=== PATIENT | female | born 1970 | race Caucasian/White ===

== ENCOUNTER 2017-01-01 10:43 | Emergency (ER) | payer OTHER ==
[2017-01-01 10:49] VITALS: BP 152/102; PULSE 85; RESP 16; TEMP 98.2; O2SAT 97
--- NOTE | 2017-01-01 11:10 | EDPHY ---
H & P Stated Complaint: Sent by PCP for elevated potasssium level, - 5.8 Time Seen by Provider: 01/01/17 11:10 - Personal History LMP (Females 10-55): Irregular Current Tetanus Diphtheria and Acellular Pertussis (TDAP): Yes - Medical/Surgical History Hx Asthma: No Hx Chronic Respiratory Disease: No Hx Diabetes: No Hx Cardiac Disease: No Hx Renal Disease: No Hx Cirrhosis: No Hx Alcoholism: No Hx HIV/AIDS: No Hx Splenectomy or Spleen Trauma: No Other PMH: Denies - Social History Smoking Status: Never smoked Constitutional: Initial Vital Signs Temperature (C) 36.8 C 01/01/17 10:44 Heart Rate 85 01/01/17 10:44 Respiratory Rate 16 01/01/17 10:44 Blood Pressure 152/102 H 01/01/17 10:44 O2 Sat (%) 97 01/01/17 10:44 O2 Delivery Mode Room Air Allergies/Adverse Reactions: No Known Allergies Allergy (Unverified 01/01/17 10:49) Home Medications: Medication Instructions Recorded Lisinopril 01/01/17 Medical Decision Making ED Course/Re-evaluation: CHIEF COMPLAINT: Elevated potassium on labs one week ago HISTORY OF PRESENT ILLNESS: The patient is a 46 y/o female arriving at the referral of her physician due to reported potassium of 5.9 on lab work performed one week ago. She states 60 days ago she had mildly elevated liver enzymes and a potassium of 5.3. They attributed this to thought it was due to being overweight. She was prescribed "liver-flushing" Prevalite, which she just completed and was then started on Lisinopril and Synthroid. She believes her kidney function was normal. She had repeat lab work one week ago and notes they attempted 5 times to draw blood at different sites before obtaining blood. Her physician called her this morning with the results and directed her to go to the ED immediately for elevated potassium. She denies palpitations, chest pain, dyspnea, or any new symptoms. She has had normal stress test, echo, and EKGs in the last several months. REVIEW OF SYSTEMS: A 10 point review of systems was performed and is negative with the exception of the elements mentioned in the history of present illness. PHYSICAL EXAM: HR, BP, O2 Sat, RR. Temp noted General Appearance: Alert, well hydrated, appropriate, and non-toxic appearing. Head: Atraumatic without scalp tenderness or obvious injury Eyes: Pupils equal, round, reactive to light and accommodation, EOMI, no trauma , no injection. Nose: Atraumatic, no rhinorrhea, clear. Throat: Mucus membranes moist. Neck: Supple, nontender, no lymphadenopathy. Respiratory: No retractions, no distress, no wheezes, and no accessory muscle use. Lungs are clear to auscultation bilaterally. Cardiovascular: Regular rate and rhythm, no murmurs, rubs, or gallops. Good capillary refill all extremities. Gastrointestinal: Abdomen is soft, nontender, non-distended, no masses, no rebound, no guarding, no peritoneal signs. Musculoskeletal: Normal active ROM of all extremities, atraumatic. Neurological: Alert, appropriate, and interactive. Nonfocal neuro exam. Skin: No rashes, good turgor, no nodules on palpation. Past medical history: Hypothyroidism, borderline hypertension, overweight Past surgical history: Denies Family history: Noncontributory Social history: From [place]. PCP: Dr. Denice Melendez DIAGNOSTICS/PROCEDURES/CRITICAL CARE TIME: The 12 lead EKG was interpreted by myself. See hard copy and/or "tracemaster" electronic copy for interpretation. DIFFERENTIAL DIAGNOSIS: The differential diagnosis included but was not limited to hemolyzed blood sample MEDICAL DECISION MAKING: This is a well-appearing 46 y/o female who presents for evaluation after her [place] PCP directed her to come to the ED for potassium of 5.8 on labs drawn one week ago. She is completely asymptomatic and denies any new symptoms over the lat couple weeks. Her exam is completely unremarkable. I suspect her blood sample was hemolyzed. ISTAT today shows potassium of 4.0. She will be discharged home with referral back to her PCP and return precautions. She is comfortable with this plan. - Data Points Laboratory Results: Laboratory Results 01/01/17 10:59 01/01/17 01/01/17 11:19 10:59 POC Hgb 15.3 gm/dL gm/dL (12.6-16.3) POC Hct 45 % % (38-47) POC Sodium 143 mEq/L mEq/L (134-144) Sodium 140 mEq/L mEq/L (134-144) POC Potassium 4.0 mEq/L mEq/L (3.3-5.0) Potassium 4.1 mEq/L mEq/L (3.5-5.2) POC Chloride 102 mEq/L mEq/L (97-110) Chloride 103 mEq/L mEq/L (97-110) Carbon Dioxide 25 mEq/l mEq/l (22-31) Anion Gap 12 mEq/L mEq/L (8-16) POC BUN 17 mg/dL mg/dL (7-23) BUN 16 mg/dL mg/dL (7-23) Creatinine 1.0 mg/dL mg/dL (0.6-1.0) POC Creatinine 1.0 mg/dL mg/dL (0.6-1.0) Estimated GFR 59 Glucose 92 mg/dL mg/dL (70-100) POC Glucose 98 mg/dL mg/dL (70-100) Calcium 10.1 mg/dL mg/dL (8.5-10.4) Point of Care Test Results: 01/01/17 11:19 POC Sodium 143 POC Potassium 4.0 POC Chloride 102 POC BUN 17 POC Creatinine 1.0 POC Glucose 98 Departure - Departure Disposition: Home, Routine, Self-Care Clinical Impression: Encounter for routine laboratory testing Condition: Good Instructions: Hypothyroidism (ED) Additional Instructions: Your potassium today is normal at 4.0. Follow up with your primary care provider as needed. Return to the ED for any worsening of condition. Referrals: DENICE MELENDEZ [Other] - As per Instructions Report Scribed for: Lyle Ceballos Report Scribed by: Janice Cardenas Date of Report: 01/01/17 Time of Report: 11:11
[2017-01-01 11:23] LABS: ANION GAP 12 mEq/L (8-16); CALCIUM 10.1 mg/dL (8.5-10.4); CARBON DIOXIDE 25 mEq/l (22-31); CHLORIDE 103 mEq/L (97-110); GLOMERULAR FILTRATION RATE 59; GLUCOSE 92 mg/dL (70-100); POTASSIUM 4.1 mEq/L (3.5-5.2); SODIUM 140 mEq/L (134-144)
== END 2017-01-01 11:40 | disposition home or self-care (01) ==
DX: Z00.00 Encounter for general adult medical examination without abnormal findings (principal)
CPT/HCPCS: 82947-QW